=== PATIENT | female | born 1990 | race African-American/Black ===

== ENCOUNTER 2018-10-07 21:47 | Inpatient (IN) | payer MEDICAID ==
[~2018-10-07] VITALS: Ht 160 cm; Wt 54.4 kg
[~2018-10-07 21:47] MED LIST: PREN-88 PO
[2018-10-07] MEDS: DEXT 5%/LR + PITOCIN 20UNITS/L 1,000 ML IV SCH ×2 (21:59→22:46)
[2018-10-07] MEDS ORDERED: LACTATED RINGERS 1,000 ML IV SCH (22:28)
[2018-10-07] MEDS ORDERED: DEXT 5%/LR + PITOCIN 20UNITS/L 1,000 ML IV SCH (23:08)
[2018-10-07] MEDS ORDERED: LANOLIN OINT 7GM TUBE TOP PRN (23:15)
[2018-10-07] MEDS ORDERED: IBUPROFEN 400MG TABLET PO PRN (23:15)
[2018-10-07] MEDS ORDERED: METHYLERGONOVINE MALEATE 0.2 MG/ML IM PRN (23:15)
[2018-10-07] MEDS ORDERED: RHO(D) IMMUNE GLOBULIN 300 MCG/SYR IM PRN (23:15)
[2018-10-07] MEDS: IBUPROFEN 800MG TABLET PO PRN (23:40)
[2018-10-08] VITALS (7 sets, daily range): BP systolic 90–101; BP diastolic 53–74
[2018-10-08 00:34] LABS: HEMATOCRIT. 30.3 % (36.0-48.0); HEMOGLOBIN. 9.9 g/dL (12.0-16.0); MEAN CORPUSCULAR HEMOGLOBIN 28.2 pg (28.0-32.0); MEAN CORPUSCULAR VOLUME 86.4 fL (81.0-99.0); MEAN PLATELET VOLUME 9.5 fl (7.4-10.4); PLATELET 262 x1000/uL (130-400); RED BLOOD CELL COUNT 3.51 mill/uL (4.2-5.4); RED CELL DISTRIBUTION WIDTH 13.8 % (11.6-14.6)
[2018-10-08 00:44] LABS: PARTIAL THROMBOPLASTIN TIME 25.8 sec (23.4-31.0); PROTHROMBIN TIME 9.9 sec (9.6-11.0)
[2018-10-08 00:46] LABS: *AMPHETAMINES SCREEN URINE NEGATIVE (NEGATIVE); *BARBITURATES SCREEN URINE NEGATIVE (NEGATIVE); *BENZODIAZEPINES SCREEN URINE NEGATIVE (NEGATIVE)
[2018-10-08 00:47] LABS: *COCAINE SCREEN URINE NEGATIVE (NEGATIVE); METHADONE URINE SCREEN NEGATIVE (NEGATIVE); OPIATES URINE SCREEN NEGATIVE (NEGATIVE); PHENCYCLIDINE URINE SCREEN NEGATIVE (NEGATIVE)
[2018-10-08 00:51] LABS: CANNABINOID URINE SCREEN PRESUMTIVE POSITIVE (NEGATIVE)
[2018-10-08 02:05] LABS: HEPATITIS B SURFACE ANTIGEN REACTIVE PEND CONFIR
[2018-10-08 02:25] LABS: PLATELET ESTIMATE NORMAL
[2018-10-08 06:58] LABS: BASOPHILS % 0.2 % (0.0-2.0); HEMATOCRIT. 28.8 % (36.0-48.0); HEMOGLOBIN. 9.4 g/dL (12.0-16.0); LYMPHOCYTES % 7.4 % (20.0-50.0); MEAN CORPUSCULAR HEMOGLOBIN 27.9 pg (28.0-32.0); MEAN CORPUSCULAR VOLUME 85.8 fL (81.0-99.0); MEAN PLATELET VOLUME 9.2 fl (7.4-10.4); MONOCYTES % 5.8 % (2.0-8.0); NEUTROPHILS % 86.6 % (40.0-76.0); PLATELET 281 x1000/uL (130-400); RED BLOOD CELL COUNT 3.36 mill/uL (4.2-5.4); RED CELL DISTRIBUTION WIDTH 13.9 % (11.6-14.6)
[2018-10-08] MEDS ORDERED: PRENATAL VIT/FE FUMARATE/FA TABLET PO SCH (09:00)
[2018-10-08] MEDS: IBUPROFEN 800MG TABLET PO PRN (18:46)
[2018-10-09 04:00] VITALS: BP 97/57
[2018-10-09 04:17] LABS: HBSAG SCREEN Negative (Negative)
[2018-10-09] MEDS: IBUPROFEN 800MG TABLET PO PRN (05:49)
[2018-10-09] MEDS ORDERED: TETANUS, DIPHTHERIA, PERTUSSIS VAC/PF 0.5ML (>7YR OLD) IM ONE (08:00)
[2018-10-09 09:00] VITALS: BP 92/64
[2018-10-14 04:17] LABS: CANNABINOID CONFIRMATION URINE Positive (.)
== END 2018-10-09 15:00 | disposition home or self-care (01) | DRG 560 ==
LOC: OBSVTOIN 21:47 → 8 EST LDRP 21:47 → INTOOBSV 21:47 → 8 EST A/PP 10-08 01:32
PROVIDERS: ADMIT Obstetrics & Gynecology; ATTEND Obstetrics & Gynecology
PROC: 10E0XZZ Delivery of Products of Conception, External Approach (ICD-10-PCS; principal; 2018-10-07)
DX: O80 Encounter for full-term uncomplicated delivery (principal); Z37.0 Single live birth; Z3A.38 38 weeks gestation of pregnancy
CPT/HCPCS: 36415; 80305; 80349; 86592; 86703; 86762; 86850; 86900; 87340; 90715; 99281; G0378; J2590